=== PATIENT | female | born 1975 ===

== ENCOUNTER 2021-05-03 10:45 | Inpatient (IN) | payer OTHER ==
[~2021-05-03] VITALS: Ht 172.7 cm; Wt 59.0 kg
[2021-05-03] MEDS ORDERED: PREDNISONE (14:58)
[2021-05-03] MEDS ORDERED: PEPCID AC20 MG (14:58)
[2021-05-03] MEDS ORDERED: HORIZANT300 MG (14:58)
[2021-05-03] MEDS ORDERED: TAMOXIFEN CITRA20 MG (14:58)
[2021-05-03] MEDS ORDERED: TRAM1TAB98 (14:59)
[2021-05-03] MEDS ORDERED: IRON (14:59)
[2021-05-03] MEDS ORDERED: CBD (15:00)
[2021-05-03] MEDS ORDERED: THC (15:01)
[2021-05-04] MEDS ORDERED: PREDNISONE2.5 MG (14:15)
[2021-05-04] MEDS ORDERED: GABAPENTIN300 M2 (14:15)
[2021-05-04] MEDS ORDERED: IRON236 MG (14:16)
[2021-05-04] MEDS ORDERED: CLINDAMYCIN PHO30 GM (14:17)
[2021-05-04] MEDS ORDERED: BUTALB-ACETAMI1 EAC2 (14:17)
== END 2021-05-10 10:57 | disposition home or self-care (01) | DRG 743 ==
LOC: OB/GYN 05-04 05:45 → O/R 05-04 05:45 → SURH 05-04 10:45 → OB/GYN 05-04 14:14
PROVIDERS: ADMIT Specialist; ATTEND Specialist
PROC: 0UT70ZZ Resection of Bilateral Fallopian Tubes, Open Approach (ICD-10-PCS; 2021-05-04)
PROC: 0UT90ZZ Resection of Uterus, Open Approach (ICD-10-PCS; principal; 2021-05-04 10:30)
PROC: 30233N1 Transfusion of Nonautologous Red Blood Cells into Peripheral Vein, Percutaneous Approach (ICD-10-PCS; 2021-05-08)
DX: D25.1 Intramural leiomyoma of uterus (principal); D64.9 Anemia, unspecified; D25.2 Subserosal leiomyoma of uterus; N72 Inflammatory disease of cervix uteri; N83.8 Other noninflammatory disorders of ovary, fallopian tube and broad ligament